=== PATIENT | female | born 1960 | race Caucasian/White ===

== ENCOUNTER 2022-01-04 08:32 | Day surgery (SDC) | payer OTHER ==
[~2022-01-04 08:32] MED LIST: Lactated Ringers 1,000 ML IV SCH; Lidocaine 1%/Sod Bicarbonate in NS 8.4% 1 ML Syringe IDERM PRN; Sodium Chloride 0.9% 10 ML Syringe FLUSH PRN; Sodium Chloride 0.9% 10 ML Syringe FLUSH SCH
[2022-01-04] MEDS ORDERED: Propofol 200 MG/20 ML SDV ONE ×3 (08:57→10:52)
[2022-01-04] MEDS ORDERED: fentaNYL 100 MCG/2 ML SDV ONE (08:59)
[2022-01-04] MEDS ORDERED: Dexamethasone 4 MG/ML SDV ONE (10:00)
[2022-01-04] MEDS ORDERED: Lidocaine 1% 4 ML ONE (10:00)
[2022-01-04] MEDS ORDERED: Ondansetron 4 MG/2 ML SDV ONE (10:00)
[2022-01-04] MEDS ORDERED: Midazolam 1 MG/ML 2 ML SDV ONE (10:00)
[2022-01-04] MEDS ORDERED: diphenhydrAMINE 50 MG/ML SDV ONE (10:00)
[2022-01-04] MEDS ORDERED: Scopolamine 1.5 MG Transdermal Patch TOP ONE (10:30)
[2022-01-04 11:34] VITALS: BP 112/65; PULSE 78
== END 2022-01-04 11:36 | disposition home or self-care (01) ==
LOC: JD.SDS 08:32
PROVIDERS: ATTEND Surgery
DX: Z12.11 Encounter for screening for malignant neoplasm of colon (principal); K63.5 Polyp of colon; K21.9 Gastro-esophageal reflux disease without esophagitis; E66.9 Obesity, unspecified; E78.00 Pure hypercholesterolemia, unspecified; Z79.899 Other long term (current) drug therapy; Z80.0 Family history of malignant neoplasm of digestive organs; Z79.82 Long term (current) use of aspirin
CPT/HCPCS: 00812; 82947; A9270-GY; J1100; J1200; J2250; J2405; J2704; J3010; J7120